=== PATIENT | female | born 1985 | race Two or more races ===

== ENCOUNTER 2016-11-03 17:56 | Emergency (ER) | payer OTHER ==
[~2016-11-03] VITALS: Ht 162.6 cm; Wt 95.2 kg
--- NOTE | ~2016-11-03 | CR142 ---
[facility] A Service of [facility] RADIOLOGY TEXT RESULTS PATIENT: CHRISTINA PRATT LOCATION: [facility] : 81 UNIT #: [id number] AGE: [address]: Tim Dickerson SEX: F ORDER DR: [id number] [facility] [address] [place], [place] [address] [id number] MR#: [id number] Acc #: [id number] NAME: CHRISTINA PRATT. : 1985 SEX: F STUDY DATE/TIME: 11/03/2016 18:15 UNIT: [facility] ROOM: STUDY DESCRIPTION: CR Hand Min 3 Views Rt Attending Physician: Tim Dickerson R.N. Ordering Physician: Tim Dickerson R.N. Primary Care Physician: Primary Care Physician No MEDICAL IMAGING REPORT This report is preliminary unless electronic signature is present EXAM Right hand series dated 11/03/2016. COMPARISON None HISTORY Trauma today. Patient smashed right hand and thumb in the car door with subsequent pain, mostly in the right thumb. FINDINGS Three views of the right hand were obtained. AP, lateral, and oblique projections of the hand show good mineralization with normal carpal, metacarpal, and phalangeal anatomy without indication of fracture, dislocation, or soft tissue radiopaque foreign body. IMPRESSION Normal hand. Dictated by... Rhiannon Jackson M.D. THIS IS AN ELECTRONICALLY VERIFIED REPORT Rhiannon Jackson M.D. at 11/04/2016 6:25 PM CPR/psc TD: 11/03/2016 23:36 JOB #: [id number] MEDICAL IMAGING REPORT [facility] A Service [facility] RADIOLOGY TEXT RESULTS PATIENT: CHRISTINA PRATT LOCATION: [facility] : 81 UNIT #: [id number] AGE: [address]: Tim Dickerson SEX: F ORDER DR: Page 1 of 1 COPY
== END 2016-11-03 18:53 | disposition home or self-care (01) ==
LOC: CFTX 17:56 → CED 17:56 → CFTX 18:30
DX: S60.111A Contusion of right thumb with damage to nail, initial encounter (principal); Z79.899 Other long term (current) drug therapy; W23.0XXA Caught, crushed, jammed, or pinched between moving objects, initial encounter; Y92.009 Unspecified place in unspecified non-institutional (private) residence as the place of occurrence of the external cause
CPT/HCPCS: 29280; 73130; 90715; 99283